=== PATIENT | female | born 1965 | race Caucasian/White ===

== ENCOUNTER 2019-02-22 14:59 | Outpatient (CLI) | payer BC | END 2019-02-22 15:00 | disposition home or self-care (01) | LOC: CTENTCT 14:59 | PROVIDERS: ATTEND Otolaryngology Plastic Surgery within the Head & Neck | DX: J01.90 Acute sinusitis, unspecified (principal) | CPT/HCPCS: 70486 ==

== ENCOUNTER 2019-03-24 12:04 | Day surgery (SDC) | payer BC ==
[2019-03-23 14:42] VITALS: BMI 23.8
[2019-03-24] MEDS ORDERED: Oxymetazoline HCl 0.05% ( 15 ML ) ONE (12:56)
[2019-03-24 12:57] LABS: Hemoglobin 14.2 g/dL (12.0-16.0)
[2019-03-24] MEDS ORDERED: Lidocaine 1% w/Epinephrine 1:100K 20 ML VIAL ONE (14:06)
[2019-03-24] MEDS ORDERED: Fentanyl 100 MCG/2 ML VIAL ONE ×2 (14:13→15:37)
[2019-03-24] MEDS ORDERED: Hydrocodone-Acetamin 15 ML UDCUP ONE (17:52)
--- NOTE | 2019-03-25 11:43 | OP ---
DATE OF PROCEDURE: 03/24/2019 PREOPERATIVE DIAGNOSES: 1. Chronic rhinosinusitis. 2. Bilateral nasal polyposis. 3. Bilateral inferior turbinate hypertrophy. 4. Nasal obstruction. POSTOPERATIVE DIAGNOSES: 1. Chronic rhinosinusitis. 2. Bilateral nasal polyposis. 3. Bilateral inferior turbinate hypertrophy. 4. Nasal obstruction. PROCEDURES PERFORMED: 1. Bilateral endoscopic sinus surgery, total ethmoidectomies. 2. Bilateral endoscopic sinus surgery, maxillary antrostomies. 3. Bilateral endoscopic sinus surgery, sphenoidotomies. 4. Bilateral endoscopic sinus surgery, frontal sinusotomies. 5. Bilateral inferior turbinate submucosal resection. ESTIMATED BLOOD LOSS: 50 mL. COMPLICATIONS: None. ANESTHESIA: GETA. DESCRIPTION OF PROCEDURE: The patient was taken to the operating room and placed supine on the table. General endotracheal anesthesia was obtained by the Anesthesia Staff. Tube was secured in the left lower lip. Following this, the patient was prepped and draped for standard nasal procedures. Following this, 1% lidocaine with 1:100,000 epinephrine was injected into the inferior turbinates, middle turbinates, and lateral nasal wall bilaterally. 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 Following this, the lateral wall of the valentina bullosa was removed using the straight Blakesley forceps and the 0-degree microdebrider bilaterally. Following this, the lateralized and atrophic uncinate process was visualized bilaterally. Using a ball-ended probe, the uncinate process was anteriorly fractured. Following this, the 0-degree microdebrider and the up-biting Blakesley forceps were used to remove the uncinate process bilaterally. The maxillary sinus ostia were identified and was gently widened using a 40-degree microdebrider and the straight Blakesley forceps. Following this, ethmoidal bulla was identified and was punctured on its medial and inferior aspect. Using the 0-degree microdebrider and the up-biting Blakesley forceps, the ethmoidal bulla was removed. There was noted to be polypoid tissue throughout the anterior ethmoidal cells as well as the posterior ethmoidal cells, especially adjacent to the lamina papyracea. Following this, the grand lamella was identified bilaterally and was punctured using the 0-degree microdebrider into the posterior ethmoidal cells. Working from posterior to anterior, the ethmoidal cells were opened in a mucosal-sparing technique. Following this, the sphenoid sinus was approached through the previous ethmoidectomies. Using 0-degree scope, the anterior wall of the sphenoid sinus was identified and gentle puncture was made with a Kay tip suction into the anterior face of the sphenoid sinus bilaterally. Using the 0-degree microdebrider, the sphenoid sinus ostia were then widened bilaterally using the 0-degree microdebrider in a medial and inferior direction. Following this, the 45-degree endoscope and the 40-degree microdebrider blade were used to further open the frontal sinus ostia bilaterally. Following this, the inferior turbinates were punctured on the anterior and inferior aspect and submucosal resection was performed of the anterior and inferior portions of the inferior turbinates bilaterally. Following this, the nasal cavity was irrigated. Mirapex was placed. Bilateral maxillary sinus PROPEL stents were placed within the maxillary sinus ostia. The patient tolerated the procedure well. Job ID: [id number]
== END 2019-03-24 17:40 | disposition home or self-care (01) ==
LOC: SDC 12:04
PROVIDERS: ATTEND Otolaryngology Plastic Surgery within the Head & Neck
PROC: 099W8ZZ Drainage of Right Sphenoid Sinus, Via Natural or Artificial Opening Endoscopic (ICD-10-PCS; principal; 2019-03-24)
PROC: 099X8ZZ Drainage of Left Sphenoid Sinus, Via Natural or Artificial Opening Endoscopic (ICD-10-PCS; principal; 2019-03-24)
PROC: 099R8ZZ Drainage of Left Maxillary Sinus, Via Natural or Artificial Opening Endoscopic (ICD-10-PCS; principal; 2019-03-24)
PROC: 099S8ZZ Drainage of Right Frontal Sinus, Via Natural or Artificial Opening Endoscopic (ICD-10-PCS; principal; 2019-03-24)
PROC: 099T8ZZ Drainage of Left Frontal Sinus, Via Natural or Artificial Opening Endoscopic (ICD-10-PCS; principal; 2019-03-24)
PROC: 099V8ZZ Drainage of Left Ethmoid Sinus, Via Natural or Artificial Opening Endoscopic (ICD-10-PCS; principal; 2019-03-24)
PROC: 09BL8ZZ Excision of Nasal Turbinate, Via Natural or Artificial Opening Endoscopic (ICD-10-PCS; principal; 2019-03-24)
PROC: 099U8ZZ Drainage of Right Ethmoid Sinus, Via Natural or Artificial Opening Endoscopic (ICD-10-PCS; principal; 2019-03-24)
PROC: 099Q8ZZ Drainage of Right Maxillary Sinus, Via Natural or Artificial Opening Endoscopic (ICD-10-PCS; principal; 2019-03-24)
DX: J32.8 Other chronic sinusitis (principal); J34.3 Hypertrophy of nasal turbinates; J33.8 Other polyp of sinus; J34.89 Other specified disorders of nose and nasal sinuses; J45.909 Unspecified asthma, uncomplicated; E07.89 Other specified disorders of thyroid; Z79.899 Other long term (current) drug therapy
CPT/HCPCS: 36415; 85014; 85018; 93005; 93010; J2001; J3010